=== PATIENT | female | born 1955 | race Caucasian/White ===

== ENCOUNTER 2020-05-23 06:32 | Day surgery (SDC) | payer MEDICARE, MEDICAID ==
[~2020-05-23] VITALS: Ht 167.6 cm; Wt 80.5 kg
[~2020-05-23 06:32] MED LIST: ALBU18HF2 INH; CHOL400T14 PO; IBUP-24 PO; SIMV-42 PO
[2020-05-23 06:40] VITALS: BP 155/91
[2020-05-23] MEDS ORDERED: TIOT18CA3 INH (06:50)
[2020-05-23] MEDS ORDERED: fentaNYL/PF 50MCG/1 ML 2ML syringe ONE (06:51)
[2020-05-23] MEDS ORDERED: MIDAZolam 5mg/5ml vial ONE (06:51)
[2020-05-23] MEDS ORDERED: MONT10TA26 PO (06:51)
[2020-05-23] MEDS ORDERED: CARV6.253 PO (06:53)
[2020-05-23] MEDS ORDERED: METF500T PO (06:53)
[2020-05-23] MEDS ORDERED: ACIT25CA2 PO (06:54)
[2020-05-23] MEDS ORDERED: PANT-47 PO (06:55)
[2020-05-23] MEDS ORDERED: ATOR20TA PO (06:55)
[2020-05-23] MEDS ORDERED: LISI40TA4 PO (06:56)
[2020-05-23] MEDS ORDERED: CEFD300C3 PO (06:56)
[2020-05-23] MEDS ORDERED: FERR324T PO (06:57)
[2020-05-23] MEDS ORDERED: BUDE10.2 INH (06:58)
[2020-05-23] MEDS ORDERED: FLUT30CR (07:01)
[2020-05-23] MEDS ORDERED: AMA1T PO (07:02)
[2020-05-23 08:35] VITALS: BP 100/59
[2020-05-23 08:45] VITALS: BP 109/64
[2020-05-23 08:55] VITALS: BP 116/64
== END 2020-05-23 09:10 | disposition home or self-care (01) ==
LOC: GI LAB 06:32
PROVIDERS: ATTEND Internal Medicine Gastroenterology
DX: Z12.11 Encounter for screening for malignant neoplasm of colon (principal); Z86.010 Personal history of colon polyps
CPT/HCPCS: 99153; G0105; G0500; J2250; J3010; J7040; 45378; 99152; A4620

== ENCOUNTER 2021-11-19 12:26 | Outpatient (CLI) | payer MEDICARE, MEDICAID ==
[~2021-11-19 12:26] MED LIST changes: +ACIT25CA2 PO; +AMA1T PO; +ATOR20TA PO; +BUDE10.2 INH; +CARV6.253 PO; +FERR324T PO; +FLUT30CR; -IBUP-24 PO; +MIRT-116 PO; +MONT-40 PO; +PANT-47 PO; -SIMV-42 PO; +TIOT18CA3 INH
== END 2021-11-19 23:59 | disposition home or self-care (01) ==
LOC: RAD 12:26
PROVIDERS: ATTEND Family Medicine
DX: K21.9 Gastro-esophageal reflux disease without esophagitis (principal); R13.10 Dysphagia, unspecified
CPT/HCPCS: 74220

== ENCOUNTER 2022-08-19 12:59 | Outpatient (CLI) | payer MEDICARE, MEDICAID | END 2022-08-19 23:59 | disposition home or self-care (01) | LOC: VAS 12:59 | PROVIDERS: ATTEND Family Medicine | DX: R56.9 Unspecified convulsions (principal); R42 Dizziness and giddiness | CPT/HCPCS: 93880 ==

== ENCOUNTER 2022-08-27 09:17 | Outpatient (CLI) | payer MEDICARE, MEDICAID | END 2022-08-27 23:59 | disposition home or self-care (01) | LOC: RAD 09:17 | PROVIDERS: ATTEND Family Medicine | DX: R56.9 Unspecified convulsions (principal) | CPT/HCPCS: 95816 ==

== ENCOUNTER 2022-12-23 09:26 | Outpatient (CLI) | payer MEDICARE, MEDICAID | END 2022-12-23 23:59 | disposition home or self-care (01) | LOC: CARD DIAG 09:26 | PROVIDERS: ATTEND Internal Medicine Cardiovascular Disease | DX: I08.1 Rheumatic disorders of both mitral and tricuspid valves (principal); I48.0 Paroxysmal atrial fibrillation; J44.9 Chronic obstructive pulmonary disease, unspecified | CPT/HCPCS: 93306 ==

== ENCOUNTER 2025-07-12 15:25 | Outpatient (CLI) | payer MEDICARE, MEDICAID ==
[~2025-07-12 15:25] MED LIST changes: -AMA1T PO; +GLIM1TAB57 PO; -MIRT-116 PO; +MIRT-142 PO
[2025-07-12 16:13] LABS: INR 1.1 INR
== END 2025-07-12 23:59 | disposition home or self-care (01) ==
LOC: RAD 15:25
PROVIDERS: ATTEND Internal Medicine
DX: R74.01 Elevation of levels of liver transaminase levels (principal); I48.0 Paroxysmal atrial fibrillation
CPT/HCPCS: 36415; 85610